=== PATIENT | male | born 1960 | race African-American/Black ===

== ENCOUNTER → 2018-08-14 | Outpatient (CLI) | payer OTHER ==
[2014-05-21 20:02] VITALS: BP 136/94
--- NOTE | 2018-08-14 10:49 | RAD ---
EXAM: Lumbar spine, 2 views; left hip, 2 views; right shoulder, 3 views. HISTORY: Pain. Football injuries. COMPARISON: None. FINDINGS: Lumbar spine: 2 views lumbar spine are obtained. There is minimal S-shaped lumbar curvature. There is minimal retrolisthesis of L4 and L5 and L5 on S1. There is degenerative and anterior endplate remodeling at the majority of the lumbar levels. The disc spaces are preserved. There is facet arthropathy predominantly at the mid lower lumbar levels. Left hip: 2 views of the left hip are obtained. There is severe left hip joint space narrowing with degenerative subchondral sclerosis and subchondral cyst formation. There is moderate marginal acetabular and femoral head osteophytosis. There is slight flattening of the superior acetabulum and superior femoral head. No cortical collapse is seen. No avascular necrosis is seen. Right shoulder: 3 views the right shoulder obtained. There is no fracture, dislocation or subluxation. There is minimal spurring along the inferior glenoid. There is partial visualization of cardiac pacemaker leads. IMPRESSION: 1. Mild multilevel degenerative change of the lumbar spine, described above. 2. Severe left hip osteoarthritis. 3. Minimal right glenohumeral osteoarthritis. Electronically signed by: Adia Hilton MD (08/14/2018 10:46 AM) [id number]
== END | disposition home or self-care (01) ==
LOC: RAD 09:18
PROVIDERS: ATTEND Surgery
DX: M47.816 Spondylosis without myelopathy or radiculopathy, lumbar region (principal); M16.12 Unilateral primary osteoarthritis, left hip; M25.511 Pain in right shoulder; Z95.0 Presence of cardiac pacemaker
CPT/HCPCS: 72100; 73030; 73502

== ENCOUNTER 2020-12-16 21:35 | Emergency (ER) | payer SELFPAY ==
[~2020-12-16] VITALS: Ht 177.8 cm; Wt 84.0 kg
--- NOTE | 2020-12-16 21:55 | EKG ---
[facility] [address] [place] [address] Test Date: 2020-12-16 Test Time: 21:42:02 Pat Name: BETH URIBE Department: Room: Gender: M Telephony Engineer: : 1960 Requested By: ADEBAYO SHIELDS Order Number: [id number] Reading MD: Measurements Intervals [place] Rate: 65 P: 24 [place]: 194 QRS: -5 QRSD: 96 T: 26 QT: 402 QTc: 419 Interpretive Statements SINUS RHYTHM LEFTWARD AXIS NO SPECIFIC ECG ABNORMALITIES RI6.02 No previous ECG available for comparison
[2020-12-16 21:59] LABS: BASO % 1 % (0-3); EOS # 0.1 x10^3/uL (0.0-0.7); EOS % 1 % (0-3); HEMATOCRIT 39.4 % (39.0-53.0); HEMOGLOBIN 12.9 g/dL (13.0-17.5); LYMPH # 3.4 x10^3/uL (1.0-4.8); LYMPH % 51 % (24-48); MEAN CORPUSCULAR HEMOGLOBIN 28 pg (25-35); MEAN CORPUSCULAR HGB CONC 33 g/dL (31-37); MEAN CORPUSCULAR VOLUME 85 fL (79-100); MONO # 0.6 x10^3/uL (0.0-1.1); MONO % 10 % (0-9); NEUT # 2.5 x10^3/uL (1.8-7.7); NEUT % 38 % (31-73); PLATELET COUNT 259 x10^3/uL (140-400); RED BLOOD COUNT 4.67 x10^6/uL (4.30-5.70); RED CELL DISTRIBUTION WIDTH 17.4 % (11.5-14.5); WHITE BLOOD COUNT 6.7 x10^3/uL (4.0-11.0)
--- NOTE | 2020-12-16 22:05 | ED.ADGEN ---
Past Medical History Past Medical History: Other Additional Past Medical Histor: bradycardia Past Surgical History: Pacemaker Smoking Status: Current Every Day Smoker Alcohol Use: None Drug Use: Marijuana General Adult EDM: Chief Complaint: HYPOTENSION HPI: HPI: Patient is a 60 year old male brought in by EMS for fatigue. EMS states on their arrival his blood pressure was 66/40. He was given some NS. Patient's he has felt fatigued and weak most of the day. Patient states it feels similar to how he felt prior to needing his pacemaker placed for bradycardia. Patient states it was placed about 10 years ago's does not remember the brand has not had it interrogated since he had a placed. Patient admits that he did smoke marijuana this afternoon. Been out in the heat doing yard work this morning for about 23 minutes has been endorsed since then. States he has had decreased p.o. intake. Has not had his Covid vaccine but denies any fevers or cough. Review of Systems: Review of Systems: All other systems within normal limits except for as noted in the HPI Current Medications: Current Medications Medications (Trade) Dose Ordered Sig/Bianca Start Time Stop Time Status Last Admin Dose Admin Sodium Chloride 1,000 ml @ 1,000 mls/hr 1X ONCE 12/17/20 00:30 12/17/20 01:29 12/17/20 00:33 1,000 MLS/HR Allergies: Allergies: Allergies Coded Allergies Type Severity Reaction Last Updated Verified No Known Drug Allergies 06/15/13 No Physical Exam: PE: Constitutional: Well developed, well nourished, no acute distress, non-toxic appearance. [] HENT: Normocephalic, atraumatic, bilateral external ears normal, nose normal. [] Eyes: PERRLA, conjunctiva normal, no discharge. [] Neck: No rigidity, supple, no stridor. [] Cardiovascular: Regular rate and rhythm, brisk cap refill [] Lungs & Thorax: Non labored symmetric respirations, no tachypnea or respiratory distress [] Abdomen: Soft, nondistended. Skin: Warm, dry, no erythema, no rash. [] Back: Unremarkable Extremities: No deformities, range of motion grossly intact, no lower extremity edema [] Neurologic: Alert and oriented X 3, no focal deficits noted. [] Psychologic: Affect normal, judgement normal, mood normal. [] Current Patient Data: Labs: Laboratory Tests Test 12/16/20 21:51 12/16/20 23:57 White Blood Count 6.7 x10^3/uL (4.0-11.0) Red Blood Count 4.67 x10^6/uL (4.30-5.70) Hemoglobin 12.9 g/dL (13.0-17.5) L Hematocrit 39.4 % (39.0-53.0) Mean Corpuscular Volume 85 fL (79-100) Mean Corpuscular Hemoglobin 28 pg (25-35) Mean Corpuscular Hemoglobin Concent 33 g/dL (31-37) Red Cell Distribution Width 17.4 % (11.5-14.5) H Platelet Count 259 x10^3/uL (140-400) Neutrophils (%) (Auto) 38 % (31-73) Lymphocytes (%) (Auto) 51 % (24-48) H Monocytes (%) (Auto) 10 % (0-9) H Eosinophils (%) (Auto) 1 % (0-3) Basophils (%) (Auto) 1 % (0-3) Neutrophils # (Auto) 2.5 x10^3/uL (1.8-7.7) Lymphocytes # (Auto) 3.4 x10^3/uL (1.0-4.8) Monocytes # (Auto) 0.6 x10^3/uL (0.0-1.1) Eosinophils # (Auto) 0.1 x10^3/uL (0.0-0.7) Basophils # (Auto) 0.0 x10^3/uL (0.0-0.2) Sodium Level 137 mmol/L (136-145) Potassium Level 3.4 mmol/L (3.5-5.1) L Chloride Level 104 mmol/L (98-107) Carbon Dioxide Level 22 mmol/L (21-32) Anion Gap 11 (6-14) Blood Urea Nitrogen 11 mg/dL (8-26) Creatinine 1.7 mg/dL (0.7-1.3) H Estimated GFR (Cockcroft-Gault) 50.0 BUN/Creatinine Ratio 6 (6-20) Glucose Level 118 mg/dL (70-99) H Calcium Level 9.0 mg/dL (8.5-10.1) Phosphorus Level 3.6 mg/dL (2.6-4.7) Magnesium Level 2.0 mg/dL (1.8-2.4) Total Bilirubin 0.3 mg/dL (0.2-1.0) Aspartate Amino Transferase (AST) 13 U/L (15-37) L Alanine Aminotransferase (ALT) 20 U/L (16-63) Alkaline Phosphatase 105 U/L (46-116) Troponin I Quantitative < 0.017 ng/mL (0.000-0.055) AD-Bgl-A-Type Natriuretic Peptide 46 pg/mL (0-124) Total Protein 7.1 g/dL (6.4-8.2) Albumin 3.6 g/dL (3.4-5.0) Albumin/Globulin Ratio 1.0 (1.0-1.7) Urine Collection Type Unknown Urine Color Yellow Urine Clarity Clear Urine pH 6.0 (<5.0-8.0) Urine Specific [place] 1.015 (1.000-1.030) Urine Protein Negative mg/dL (NEG-TRACE) Urine Glucose (UA) Negative mg/dL (NEG) Urine Ketones (Stick) Negative mg/dL (NEG) Urine Blood Small (NEG) Urine Nitrite Negative (NEG) Urine Bilirubin Negative (NEG) Urine Urobilinogen Dipstick 0.2 mg/dL (0.2 mg/dL) Urine Leukocyte Esterase Negative (NEG) Urine RBC Occ /HPF (0-2) Urine WBC Rare /HPF (0-4) Urine Squamous Epithelial Cells Few /LPF Urine Bacteria 0 /HPF (0-FEW) Urine Mucus Slight /LPF Laboratory Tests 12/16/20 21:51 Laboratory Tests 12/16/20 21:51 Vital Signs: Vital Signs Date Time Temp Pulse Resp B/P (MAP) Pulse Ox O2 Delivery O2 Flow Rate FiO2 12/16/20 21:37 98.0 69 20 144/91 (108) 100 Room Air 98.0 EKG: EKG: Sinus rhythm, heart rate 65 bpm, left extubation, no ST elevation depression, no ectopy. Significant change when compared to EKG from [id number][] Heart Score: C/O Chest Pain: No HEART Score for Chest Pain: HEART Score for Chest Pain Response (Comments) Value History Slighlty/Non-Suspicious 0 ECG Nonspecific Repolarizatio 1 Age >45 - < 65 1 Risk Factors 1 or 2 Risk Factors 1 Troponin < Normal Limit 0 Total 3 Risk Factors: Risk Factors: DM, Current or recent (<one month) smoker, HTN, HLP, family history of CAD, obesity. Risk Scores: Score 0 - 3: 2.5% MACE over next 6 weeks - Discharge Home Score 4 - 6: 20.3% MACE over next 6 weeks - Admit for Clinical Observation Score 7 - 10: 72.7% MACE over next 6 weeks - Early Invasive Strategies Radiology/Procedures: Radiology/Procedures: [facility] [address] [place] [address] IMAGING REPORT Signed PATIENT: BETH URIBE ACCOUNT: [id number] : 1960 LOCATION: ER AGE: 60 SEX: M EXAM STATUS: PRE ER ORD. PHYSICIAN: ADEBAYO SHIELDS MD REASON: weakness PROCEDURE: CHEST PA & LATERAL Exam: Chest 2 views INDICATION: Weakness TECHNIQUE: Frontal and lateral views the chest Comparisons: 04/10/2014 FINDINGS: The cardiomediastinal silhouette and pulmonary vessels are within normal limits. Patchy right infrahilar airspace disease. No pleural effusion IMPRESSION: Right infrahilar airspace disease Electronically signed by: Simon Deng MD (12/16/2020 10:14 PM) [facility] DICTATED and SIGNED BY: SIMON DENG MD DATE: 12/16/20 [id number] [] Course & Med Decision Making: Course & Med Decision Making Pertinent Labs and Imaging studies reviewed. (See chart for details) Patient's pacemaker interrogated and was reported to be in "great condition" has had 2 episodes of irregular beats likely unsustained V. tach once in 2013 and once in 2017. No recent events. Patient is hypertensive emergency department and was on arrival, suspect inaccurate blood pressure reading by EMS. Patient is feeling better after fluids, discussed importance of primary care for routine visits. Patient was Covid swab done in emergency department given instructions for quarantine [] Dragon Disclaimer: Dragon Disclaimer: This electronic medical record was generated, in whole or in part, using a voice recognition dictation system. Departure Departure Impression: Primary Impression: Dehydration Additional Impression: Person under investigation for COVID-19 Referrals: ANURAG VILLALBA (PCP) Additional Instructions: You have been tested for or diagnosed with COVID-19. It is an infection caused by a new type of coronavirus. COVID-19 will cause cold-like or mild flu symptoms in most. It can cause more severe symptoms like problems breathing in some. There is no treatment for COVID-19. The body will clear the infection over time. Self-care will help to ease discomfort. Steps to Take: Self-Care Rest as needed. Healthy habits may help you feel better. Steps include: Choose healthy foods including fruits and vegetables. Drink water throughout the day. Get plenty of sleep each night. If you smoke, try to quit. It may ease breathing. Avoid alcohol. Keep Others Healthy The virus can spread to others. Droplets are released every time you sneeze or cough. The droplets can get into the mouth, nose, or eyes of people near you and lead to infection. To lower the chances of spreading COVID-19 to others: Stay at home until your doctor has said it is safe to leave. If you tested positive this will mean staying isolated until both of the following are true: At least 7 days have passed since the start of illness. You are free of fever for at least 72 hours without the use of medicine. During this time: - Avoid public areas, events, or transportation. Do not return to work or school until your doctor has said it is safe to do so. - Call ahead if you need to go to a medical center. Let them know you may have COVID-19. It will help them guide you where to go. They may also ask you to wear a facemask when you come to the office. - If you call for emergency medical services, let them know you may have COVID- 19. While at home: - Try to avoid close contact with others. Stay about 6 feet away. - If possible, spend most of your time in a separate room from others. - Use a face mask if you will be in close contact with others such as sharing a room or vehicle. - Have someone wipe down common surfaces in the home. Use household electron beam operator every day on areas like doorknobs, counters, or sinks. - Cough or sneeze into a tissue. Throw the tissue away right after use. If a tissue is not available, cough or sneeze into your elbow. - Wash your hands often. Wash them after sneezing or coughing. Use soap and water and wash for at least 20 seconds. Alcohol based hand immersion metal cleaner can be used if soap and water is not available. - Do not prepare food for others. Avoid sharing personal items like forks, spoons, or toothbrushes. - Avoid close contact with pets while you are sick. There is no evidence of the virus passing to pets. This is a safety step until more is known about this virus. Isolation can be frustrating. Social interaction can help. Keep in touch with friends and family through phone and tech options. You can still interact with others in your home, just keep a safe distance of about 6 feet. Follow-up: Your doctors office will check in with you to see if there are any changes in your health. You may be asked to keep track of symptoms to share with them. They will also let you know when you are clear to be in public again. Problems to Look Out For: Contact your doctor if your recovery is not going as you expect. Get emergency care if you have problems such as: - Trouble breathing - Nonstop chest pain or pressure - Changes in awareness, confusion, or problems waking - Lips or face have bluish color - Worsening of symptoms If you think you have an emergency, call for emergency medical services right away. [facility] No Active Prescriptions or Reported Meds Problem Qualifiers ADEBAYO SHIELDS MD Dec 16, 2020 22:05
[2020-12-16 22:09] LABS: CREATININE 1.7 mg/dL (0.7-1.3); POTASSIUM 3.4 mmol/L (3.5-5.1)
[2020-12-16 22:15] LABS: ALBUMIN 3.6 g/dL (3.4-5.0); PHOSPHORUS 3.6 mg/dL (2.6-4.7); TOTAL BILIRUBIN 0.3 mg/dL (0.2-1.0); TOTAL PROTEIN 7.1 g/dL (6.4-8.2)
--- NOTE | 2020-12-16 22:16 | RAD ---
Exam: Chest 2 views INDICATION: Weakness TECHNIQUE: Frontal and lateral views the chest Comparisons: 04/10/2014 FINDINGS: The cardiomediastinal silhouette and pulmonary vessels are within normal limits. Patchy right infrahilar airspace disease. No pleural effusion IMPRESSION: Right infrahilar airspace disease Electronically signed by: Simon Dominique MD (12/16/2020 10:14 PM) [facility]
[2020-12-16] MEDS ORDERED: IV NORMAL SALINE 1000ML BAG 1,000 ML IV ONE (23:45)
[2020-12-17 00:06] LABS: BILIRUBIN,URINE NEGATIVE (NEG); CLARITY,URINE CLEAR; COLOR,URINE YELLOW; NITRITE,URINE NEGATIVE (NEG); PROTEIN,URINE NEGATIVE (NEG-TRACE); UROBILINOGEN,URINE 0.2 mg/dL (0.2 mg/dL)
[2020-12-17 00:16] LABS: BACTERIA,URINE 0 /HPF (0-FEW); RBC,URINE OCC /HPF (0-2); WBC,URINE RARE /HPF (0-4)
[2020-12-17] MEDS ORDERED: IV NORMAL SALINE 1000ML BAG 1,000 ML IV ONE (00:30)
[2020-12-17 00:38] VITALS: BP 135/92
--- NOTE | 2020-12-18 13:55 | NUR ---
IP Attempted to contact pt concerning covid results. Pt had called [employer] [facility] and gave a different phone number [phone]. Still no answer and no voicemail.
--- NOTE | 2020-12-19 16:24 | NUR ---
IP: Informed pt of positive covid test and the need to quarantine for 10 days. Pt verbalized understanding.
== END 2020-12-17 01:20 | disposition home or self-care (01) ==
LOC: ER 21:35
DX: U07.1 COVID-19 (principal); E86.0 Dehydration; F17.200 Nicotine dependence, unspecified, uncomplicated; Z95.0 Presence of cardiac pacemaker
CPT/HCPCS: 36415; 71046; 80053; 81001; 83735; 83880; 84100; 84484; 85025; 93005; 96360; 96361; 99285; J7030; U0003; U0005

== ENCOUNTER → 2021-05-27 | Outpatient (CLI) | payer OTHER ==
--- NOTE | 2021-05-28 09:23 | RAD ---
3 views lumbar spine without comparison for left hip pain. FINDINGS: There is straightening of the normal lumbar lordosis. Bulky facet arthrosis is seen particu larly at L5-S1, with more mild/moderate facet arthrosis at the higher levels. There is likely narrowi ng of L5-S1 as well. Anterior osteophytes at multiple levels. IMPRESSION: 1. No acute osseous or alignment abnormality. 2. Degenerative disc disease and bulky facet arthrosis at L5-S1. If there is clinical concern for ner ve root impingement at this level, further evaluation with MRI could be of benefit. Electronically signed by: Jamie Couch MD (05/28/2021 9:20 AM) [id number]
--- NOTE | 2021-05-28 09:24 | RAD ---
Single AP the pelvis and 2 views of left hip without comparison for low back pain, left hip pain. FINDINGS: There is moderate degenerative osteoarthritis of the right hip, with severe arthritic harris es of the left hip resulting in [id number] and mild acetabular protrusio, with bulky subchondral cy sts and dense subchondral sclerosis and osteophytosis. IMPRESSION: 1. Severe arthritic changes of the left hip with [id number] and mild acetabular protrusio. Electronically signed by: Jamie Couch MD (05/28/2021 9:21 AM) [id number]
== END ==
LOC: RAD 12:52
PROVIDERS: ATTEND Anesthesiology Pain Medicine
DX: Z02.71 Encounter for disability determination (principal); M51.37 Other intervertebral disc degeneration, lumbosacral region; M47.817 Spondylosis without myelopathy or radiculopathy, lumbosacral region; M25.78 Osteophyte, vertebrae; M40.46 Postural lordosis, lumbar region; M16.12 Unilateral primary osteoarthritis, left hip
CPT/HCPCS: 72100; 73502